=== PATIENT | female | born 1960 | race Caucasian/White ===

== ENCOUNTER 2019-07-27 18:53 | Inpatient (IN) | payer OTHER, MEDICAID ==
[~2019-07-27] VITALS: Ht 162.6 cm; Wt 106.1 kg
[2019-07-27 19:21] LABS: BASOPHIL % 0.3 % (0-2); PLATELET COUNT 151 x10^3mcL (130-400); RED CELL DISTRIBUTION WIDTH 16.1 % (11.5-14.5)
[2019-07-27 19:35] LABS: CALCIUM 8.8 mg/dL (8.5-10.1); CARBON DIOXIDE 39.3 mmol/L (21-32); CREATININE SERUM 2.4 mg/dL (0.6-1.0); POTASSIUM SERUM 3.4 mmol/L (3.5-5.1)
[2019-07-27 19:40] LABS: ALBUMIN 3.3 g/dL (3.4-5.0); BILIRUBIN TOTAL 0.4 mg/dL (0.20-1.00); TOTAL PROTEIN, SERUM 7.5 g/dL (6.4-8.2)
[2019-07-27 20:11] LABS: microscopic required? NO
[2019-07-27 20:24] LABS: UA SPECIFIC GRAVITY 1.015 (1.005-1.035); urine erythrocyte NEGATIVE (NEGATIVE)
[2019-07-27] MEDS ORDERED: THERA M PLUS T1 EACH PO (21:28)
[2019-07-27] MEDS ORDERED: DSS100 MG PO (21:28)
[2019-07-27] MEDS ORDERED: ATI0.5 PO (21:29)
[2019-07-27] MEDS ORDERED: MAGNESIUM400 MG PO (21:30)
[2019-07-27] MEDS ORDERED: ADALAT CC60 MG PO (21:30)
[2019-07-27] MEDS ORDERED: POLYETHYLE17 GM/Dos4 PO (21:30)
[2019-07-27] MEDS ORDERED: KLOR-CON M2020 MEQ PO (21:31)
[2019-07-27] MEDS ORDERED: SERO100 PO (21:31)
[2019-07-27] MEDS ORDERED: LAMOTRIGINE100 M2 PO (21:32)
[2019-07-27] MEDS ORDERED: KEPPRA XR500 M2 PO (21:33)
[2019-07-27] MEDS ORDERED: LAMOTRIGINE25 M2 PO (21:33)
[2019-07-27] MEDS ORDERED: DEPAKOTE500 MG PO (21:34)
[2019-07-27] MEDS ORDERED: LEVOXYL25 MCG PO (21:34)
[2019-07-27] MEDS ORDERED: ESOMEPRAZOLE MA40 MG PO (21:35)
[2019-07-27] MEDS ORDERED: MELATIN1 TAB PO (21:36)
[2019-07-27] MEDS ORDERED: HYDROCHLOROTH12.5 M3 PO (21:37)
[2019-07-27] MEDS ORDERED: ATORVASTATIN CA20 M1 PO (21:37)
[2019-07-27] MEDS ORDERED: CALCIUM 500+D1 EACH PO (21:38)
[2019-07-27 23:13] LABS: FREE T4 1.03 ng/dL (0.76-1.46); FREE THYROXINE INDEX 2.9 ug/dL (1.4-4.5); T4(THYROXINE) 8.8 ug/dL (4.7-13.3)
[2019-07-27 23:22] VITALS: BP 115/70
[2019-07-28 00:22] LABS: T3 TOTAL 0.56 ng/mL
[2019-07-28 06:03] VITALS: BP 121/86
[2019-07-28 06:18] LABS: BASOPHIL % 0.2 % (0-2); PLATELET COUNT 131 x10^3mcL (130-400)
[2019-07-28 06:30] LABS: RED CELL DISTRIBUTION WIDTH 16.4 % (11.5-14.5)
[2019-07-28 07:17] LABS: CALCIUM 8.4 mg/dL (8.5-10.1); CARBON DIOXIDE 36.3 mmol/L (21-32); CREATININE SERUM 1.8 mg/dL (0.6-1.0); MAGNESIUM 2.8 mg/dL (1.8-2.4); PHOSPHOROUS 4.9 mg/dL (2.5-4.9)
[2019-07-28 08:39] VITALS: BP 113/70
[2019-07-28 12:14] VITALS: BP 105/64
[2019-07-28 16:25] VITALS: BP 101/65
[2019-07-28 21:31] VITALS: BP 100/66
[2019-07-29 05:22] VITALS: BP 109/53
[2019-07-29 06:26] LABS: BASOPHIL % 0.3 % (0-2)
[2019-07-29 06:52] LABS: CALCIUM 8.4 mg/dL (8.5-10.1); CARBON DIOXIDE 34.9 mmol/L (21-32); CREATININE SERUM 1.8 mg/dL (0.6-1.0); POTASSIUM SERUM 3.5 mmol/L (3.5-5.1)
[2019-07-29 06:57] LABS: PLATELET COUNT 123 x10^3mcL (130-400); RED CELL DISTRIBUTION WIDTH 16.6 % (11.5-14.5)
[2019-07-29 07:43] VITALS: BP 123/75
[2019-07-29 11:36] VITALS: BP 120/73
[2019-07-29 15:58] VITALS: Ht 162.6 cm; Wt 106.1 kg
[2019-07-29 16:18] VITALS: BP 136/76
[2019-07-29 20:27] VITALS: BP 136/85
[2019-07-30 04:40] VITALS: BP 107/70
[2019-07-30 06:33] LABS: BASOPHIL % 0.1 % (0-2)
[2019-07-30 06:41] LABS: PLATELET COUNT 102 x10^3mcL (130-400); RED CELL DISTRIBUTION WIDTH 16.3 % (11.5-14.5)
[2019-07-30 07:04] LABS: CALCIUM 8.8 mg/dL (8.5-10.1); CREATININE SERUM 1.1 mg/dL (0.6-1.0); POTASSIUM SERUM 4.2 mmol/L (3.5-5.1)
[2019-07-30 08:23] VITALS: BP 155/97
[2019-07-30 12:39] VITALS: BP 141/79
[2019-07-30 17:10] VITALS: BP 144/79
[2019-07-30 21:15] VITALS: BP 103/56
[2019-07-30 21:20] VITALS: BP 136/75
[2019-07-31 05:52] VITALS: BP 128/82
[2019-07-31 06:29] LABS: BASOPHIL % 0.2 % (0-2)
[2019-07-31 06:48] LABS: CARBON DIOXIDE 23.1 mmol/L (21-32); CHLORIDE SERUM 103 mmol/L (98-107); CREATININE SERUM 0.9 mg/dL (0.6-1.0); GFR1 > 60 mL/min; GLUCOSE SERUM 73 mg/dL (74-106); POTASSIUM SERUM 4.2 mmol/L (3.5-5.1); SODIUM SERUM 136 mmol/L (136-145)
[2019-07-31 07:06] LABS: PLATELET COUNT 100 x10^3mcL (130-400)
[2019-07-31 08:21] VITALS: BP 133/77
[2019-07-31 12:20] VITALS: BP 134/74
[2019-07-31 16:24] VITALS: BP 122/70
[2019-07-31 20:30] VITALS: BP 148/81
[2019-08-01 05:50] VITALS: BP 143/71
[2019-08-01 07:01] LABS: BASOPHIL % 0.3 % (0-2)
[2019-08-01 07:08] LABS: PLATELET COUNT 116 x10^3mcL (130-400); RED CELL DISTRIBUTION WIDTH 15.7 % (11.5-14.5)
[2019-08-01 07:24] LABS: CALCIUM 8.8 mg/dL (8.5-10.1); CHLORIDE SERUM 105 mmol/L (98-107); GFR1 > 60 mL/min; GLUCOSE SERUM 66 mg/dL (74-106); POTASSIUM SERUM 4.2 mmol/L (3.5-5.1); SODIUM SERUM 138 mmol/L (136-145)
[2019-08-01 07:56] VITALS: BP 118/54
[2019-08-01 12:51] VITALS: BP 120/64
[2019-08-01 16:58] VITALS: BP 124/66
[2019-08-01 19:22] VITALS: BP 129/70
[2019-08-02 05:11] VITALS: BP 129/74
[2019-08-02 07:14] LABS: CALCIUM 8.5 mg/dL (8.5-10.1); CARBON DIOXIDE 21.9 mmol/L (21-32); CHLORIDE SERUM 105 mmol/L (98-107); CREATININE SERUM 0.9 mg/dL (0.6-1.0); GFR1 > 60 mL/min; GLUCOSE SERUM 94 mg/dL (74-106); POTASSIUM SERUM 3.4 mmol/L (3.5-5.1); SODIUM SERUM 137 mmol/L (136-145)
[2019-08-02 08:39] LABS: PLATELET COUNT 141 x10^3mcL (130-400)
[2019-08-02 08:44] LABS: RED CELL DISTRIBUTION WIDTH 15.8 % (11.5-14.5)
[2019-08-02 08:55] VITALS: BP 128/72
[2019-08-02 11:26] VITALS: BP 128/72
[2019-08-02 12:05] VITALS: BP 115/69
[2019-08-02 13:32] LABS: SEGMENTED NEUTROPHILS 50 % (37-75)
[2019-08-02 13:33] LABS: ATYPICAL LYMPH 1 %
[2019-08-02 13:40] LABS: MONOCYTE 17 % (0-7)
[2019-08-02 13:41] LABS: rbc morphology (normal/abnorm) NORMAL (NORMAL)
== END 2019-08-02 14:15 | DRG 314 ==
LOC: ED 18:53 → DU 22:06 → MU 22:06 → DU 23:00 → MU 07-31 10:38
PROVIDERS: Emergency Medicine; Family Medicine; ADMIT Student in an Organized Health Care Education/Training Program
DX: I95.9 Hypotension, unspecified (principal); J69.0 Pneumonitis due to inhalation of food and vomit; N17.0 Acute kidney failure with tubular necrosis; R65.10 Systemic inflammatory response syndrome (SIRS) of non-infectious origin without acute organ dysfunction; F84.0 Autistic disorder; Z68.41 Body mass index [BMI] 40.0-44.9, adult; R68.0 Hypothermia, not associated with low environmental temperature; E86.0 Dehydration; R41.82 Altered mental status, unspecified; E03.9 Hypothyroidism, unspecified; F79 Unspecified intellectual disabilities; G80.9 Cerebral palsy, unspecified; G40.909 Epilepsy, unspecified, not intractable, without status epilepticus; Z22.322 Carrier or suspected carrier of Methicillin resistant Staphylococcus aureus
CPT/HCPCS: 82962; 83880; 84439; 87804; 92526-GN; 92610-GN; 97116-GP; 97530-GP; G0378; J2405; J2543; J7030; J7042; Q0092

== ENCOUNTER 2020-02-16 21:14 | Emergency (ER) | payer OTHER, MEDICAID ==
[~2020-02-16] VITALS: Ht 170.2 cm; Wt 86.2 kg
[~2020-02-16 21:14] MED LIST: ADALAT CC60 MG PO; ATI0.5 PO; ATORVASTATIN CA20 M1 PO; CALCIUM 500+D1 EACH PO; DEPAKOTE500 MG PO; DSS100 MG PO; ESOMEPRAZOLE MA40 MG PO; HYDROCHLOROTH12.5 M3 PO; KEPPRA XR500 M2 PO; KLOR-CON M2020 MEQ PO; LAMOTRIGINE100 M2 PO; LAMOTRIGINE25 M2 PO; LEVOXYL25 MCG PO; MAGNESIUM400 MG PO; MELATIN1 TAB PO; POLYETHYLE17 GM/Dos4 PO; SERO100 PO; THERA M PLUS T1 EACH PO
[2020-02-16 21:20] VITALS: Ht 170.2 cm; Wt 86.2 kg
[2020-02-16 23:39] VITALS: BP 104/73
== END 2020-02-17 00:11 | disposition home or self-care (01) ==
LOC: ED 21:14
DX: R05 Cough (principal); Z20.828 Contact with and (suspected) exposure to other viral communicable diseases
CPT/HCPCS: Q0092